=== PATIENT | male | born 1955 | race African-American/Black ===

== ENCOUNTER 2018-09-03 16:32 | Inpatient (IN) ==
[2018-09-03 17:17] LABS: Basophils % 0.3 % (0.0-0.8); Eosinophils # 0.1 10*3/uL (0.0-0.87); Hemoglobin 11.9 GM/DL (14.0-18.0); Immature Granulocytes % 0.4 %; Immature Granulocytes Absolute 0.03 #; Lymphocytes # 0.4 10*3/uL (1.4-4.0); Lymphocytes % 5.7 % (21.2-54.2); Mean Corpuscular HGB Conc 32.2 GM/DL (32-36); Mean Corpuscular Hemoglobin 28 PG (27-34); Mean Corpuscular Volume 86.7 FL (87-102); Monocytes # 0.5 10*3/uL (0.11-0.8); Monocytes % 6.2 % (1.7-12.7); Neutrophils # 6.3 10*3/uL (1.4-7.4); Neutrophils % 86.4 % (38.7-73.9); Platelet Count 498 T/CUMM (130-400); Red Blood Count 4.27 MC/CUMM (3.8-5.5); Red Cell Distribution Width 15.1 % (9.3-17.3); White Blood Count 7.2 T/CUMM (4-12)
[2018-09-03 17:27] LABS: INR 1.1; PT Patient Result 11.7 SECS; Partial Thromboplastin Time 29.1 SECS (0-40)
[2018-09-03 17:39] LABS: Albumin 3.6 G/DL (3.4-5.0); Bilirubin,Total 0.4 MG/DL (0.2-1.0); Osmolality,Calculated 266.4 MOS/KG (273-304); Potassium 4.5 MMOL/L (3.5-5.1); Total Protein 8.8 G/DL (6.4-8.3)
[2018-09-03 17:44] LABS: Calcium 14.7 MG/DL (8.5-10.1)
[2018-09-03] MEDS ORDERED: SODIUM CHLORIDE 0.9% 1,000 ML IV STA (17:47)
[2018-09-03] MEDS ORDERED: FUROSEMIDE 40 MG/4 ML VIAL IV STA (17:47)
[2018-09-03] MEDS ORDERED: FUROSEMIDE 40 MG/4 ML VIAL ONE (17:49)
[2018-09-03 18:15] LABS: Apearance,Urine Slightly Hazy (Clear); Bilirubin,Urine Negative (Negative); Blood, Urine Large mg/dL (Negative); Glucose,Urine (UA) Negative (Negative); Ketones,Urine Negative (Negative); Mucus,Urine Occasional /LPF (Occasional); Nitrite,Urine Negative (Negative); Protein,Urine Negative; RBC,Urine 81 /HPF (0-4); Squamous Epithelial Cell,Urine Occasional /HPF (0-10); Urine Color Yellow (Yellow); Urine Specific Gravity 1.018 (1.001-1.035); WBC,Urine 4 /HPF (0-6)
[2018-09-03] MEDS ORDERED: ONDANSETRON 4 MG/2 ML VIAL IV PRN (18:19)
[2018-09-03] MEDS ORDERED: BISACODYL 5 MG TABLET PO PRN (18:19)
[2018-09-03] MEDS: MORPHINE 4 MG/1 ML VIAL IV PRN (20:13)
[2018-09-03] MEDS: DOCUSATE SODIUM 100 MG CAPSULE PO SCH (21:40)
[2018-09-03] MEDS: ENOXAPARIN 40 MG/0.4 ML SYRINGE SUBCUT SCH (21:40)
[2018-09-03 21:54] LABS: Parathyroid Hormone Intact 5.3 PG/ML (18.4-80.1)
[2018-09-03] MEDS: SODIUM CHLORIDE 0.9% 1,000 ML IV SCH (22:00)
[2018-09-04 03:15] LABS: Basophils % 0.2 % (0.0-0.8); Eosinophils # 0.1 10*3/uL (0.0-0.87); Eosinophils % 1.4 % (0.00-10.9); Hemoglobin 11.8 GM/DL (14.0-18.0); Immature Granulocytes % 0.4 %; Immature Granulocytes Absolute 0.02 #; Lymphocytes # 0.4 10*3/uL (1.4-4.0); Lymphocytes % 7.4 % (21.2-54.2); Mean Corpuscular HGB Conc 31.9 GM/DL (32-36); Mean Corpuscular Hemoglobin 28 PG (27-34); Mean Corpuscular Volume 87.1 FL (87-102); Mean Platelet Volume 8.5 FL (9.6-12.0); Monocytes # 0.5 10*3/uL (0.11-0.8); Monocytes % 9.5 % (1.7-12.7); Neutrophils # 4.6 10*3/uL (1.4-7.4); Neutrophils % 81.1 % (38.7-73.9); Platelet Count 465 T/CUMM (130-400); Red Blood Count 4.25 MC/CUMM (3.8-5.5); White Blood Count 5.7 T/CUMM (4-12)
[2018-09-04] MEDS: MORPHINE 4 MG/1 ML VIAL IV PRN ×5 (03:48→21:17)
[2018-09-04 03:49] LABS: Calcium 13.5 MG/DL (8.5-10.1); Osmolality,Calculated 268.2 MOS/KG (273-304); Potassium 4.3 MMOL/L (3.5-5.1); Thyroid Stimulating Hormone 0.672 uIU/ml (0.358-3.74)
[2018-09-04] MEDS: SODIUM CHLORIDE 0.9% 1,000 ML IV SCH ×3 (04:34→15:52)
[2018-09-04] MEDS: POLYETHYLENE GLYCOL POWDER 17 GM PACK PO SCH (08:55)
[2018-09-04] MEDS: DOCUSATE SODIUM 100 MG CAPSULE PO SCH ×2 (08:55→21:18)
[2018-09-04] MEDS ORDERED: ZOLEDRONIC ACID 4 MG in PREMIX 1 EACH IV ONE (09:27)
[2018-09-04 11:21] LABS: Albumin (SPE) 4.7 G/DL (3.2-5.3); Albumin (SPE) Rel % 53.3 %; Alpha 1 (SPE) 0.4 G/DL (0.1-0.4); Alpha 2 (SPE) 1.3 G/DL (0.4-1.0); Alpha 2 (SPE) Rel % 14.7 %; Beta (SPE) Rel % 11.3 %; Gamma (SPE) 1.4 G/DL (0.7-1.7); Total Protein (Chem) 8.8 G/DL (6.4-8.3)
[2018-09-04 11:22] LABS: Gamma (SPE) Rel % 15.7 %
[2018-09-04] MEDS: ENOXAPARIN 40 MG/0.4 ML SYRINGE SUBCUT SCH (21:19)
[2018-09-05] MEDS: MORPHINE 4 MG/1 ML VIAL IV PRN ×3 (04:06→18:26)
[2018-09-05 04:43] LABS: Basophils % 0.2 % (0.0-0.8); Eosinophils # 0.1 10*3/uL (0.0-0.87); Eosinophils % 1.1 % (0.00-10.9); Hematocrit 31.5 VOL% (42.0-52.0); Immature Granulocytes % 0.5 %; Immature Granulocytes Absolute 0.03 #; Lymphocytes # 0.2 10*3/uL (1.4-4.0); Lymphocytes % 2.5 % (21.2-54.2); Mean Corpuscular HGB Conc 31.7 GM/DL (32-36); Mean Corpuscular Hemoglobin 28 PG (27-34); Mean Corpuscular Volume 87.5 FL (87-102); Mean Platelet Volume 9.1 FL (9.6-12.0); Monocytes # 0.3 10*3/uL (0.11-0.8); Neutrophils # 5.9 10*3/uL (1.4-7.4); Neutrophils % 91.7 % (38.7-73.9); Platelet Count 400 T/CUMM (130-400); White Blood Count 6.4 T/CUMM (4-12)
[2018-09-05 05:11] LABS: Calcium 11.8 MG/DL (8.5-10.1); Osmolality,Calculated 272.8 MOS/KG (273-304); Potassium 4.3 MMOL/L (3.5-5.1)
[2018-09-05 05:17] LABS: Alanine Aminotransferase < 9 U/L (16-61); Alkaline Phosphatase 154 U/L (45-117); Aspartate Amino Transferase 5 U/L (0-37); Blood Urea Nitrogen 13 MG/DL (7-18); Calcium 12.5 MG/DL (8.5-10.1); Glucose 91 MG/DL (74-106); Potassium 4.7 MMOL/L (3.5-5.1); Sodium 136 MMOL/L (136-145); Total Protein 6.6 G/DL (6.4-8.3)
[2018-09-05 06:01] LABS: Eosinophils 3 % (0-10); Lymphocytes 3 % (20-55); Segmented Neutrophils 90 % (50-85)
[2018-09-05 06:02] LABS: Hypochromasia 1+; Platelet Estimate Increased
[2018-09-05 06:03] LABS: Total Cells Counted 100
[2018-09-05] MEDS ORDERED: MAGNESIUM SULF RIDER 4 GM in PREMIX 1 EACH IV PRN (09:13)
[2018-09-05] MEDS ORDERED: MAGNESIUM SULF RIDER 2 GM in PREMIX 1 EACH IV PRN (09:13)
[2018-09-05] MEDS: POLYETHYLENE GLYCOL POWDER 17 GM PACK PO SCH (09:25)
[2018-09-05] MEDS: DOCUSATE SODIUM 100 MG CAPSULE PO SCH ×2 (09:25→20:45)
[2018-09-05] MEDS: SODIUM CHLORIDE 0.9% 1,000 ML IV SCH ×2 (13:16→13:17)
[2018-09-05] MEDS: LACTULOSE 20 GM/30 ML UDCUP PO PRN (13:18)
[2018-09-05] MEDS ORDERED: DEXAMETHASONE 10 MG/1 ML VIAL IV ONE (14:38)
[2018-09-05] MEDS: oxyCODONE/ACETAMINOPHEN 5-325 MG TABLET PO PRN (15:49)
[2018-09-05] MEDS: MORPHINE ER 15 MG TABLET PO SCH (20:45)
[2018-09-05] MEDS: ENOXAPARIN 40 MG/0.4 ML SYRINGE SUBCUT SCH (20:46)
[2018-09-06] MEDS: ENOXAPARIN 40 MG/0.4 ML SYRINGE SUBCUT SCH ×2 (02:12→20:08)
[2018-09-06] MEDS: MORPHINE 4 MG/1 ML VIAL IV PRN ×2 (03:18→10:52)
[2018-09-06] MEDS: SODIUM CHLORIDE 0.9% 1,000 ML IV SCH ×2 (03:19→05:25)
[2018-09-06] MEDS: oxyCODONE/ACETAMINOPHEN 5-325 MG TABLET PO PRN ×3 (05:22→21:38)
[2018-09-06] MEDS ORDERED: ACETAMINOPHEN 500 MG TABLET PO PRN (05:36)
[2018-09-06] MEDS ORDERED: LORazepam 2 MG/1 ML VIAL IV PRN (08:22)
[2018-09-06 09:04] LABS: Basophils % 0.2 % (0.0-0.8); Eosinophils % 0.2 % (0.00-10.9); Hematocrit 29.8 VOL% (42.0-52.0); Hemoglobin 9.5 GM/DL (14.0-18.0); Immature Granulocytes % 0.5 %; Immature Granulocytes Absolute 0.03 #; Lymphocytes # 0.1 10*3/uL (1.4-4.0); Lymphocytes % 2.5 % (21.2-54.2); Mean Corpuscular HGB Conc 31.9 GM/DL (32-36); Mean Corpuscular Hemoglobin 28 PG (27-34); Mean Corpuscular Volume 86.9 FL (87-102); Mean Platelet Volume 8.6 FL (9.6-12.0); Monocytes # 0.2 10*3/uL (0.11-0.8); Monocytes % 2.9 % (1.7-12.7); Neutrophils # 5.3 10*3/uL (1.4-7.4); Neutrophils % 93.7 % (38.7-73.9); Platelet Count 345 T/CUMM (130-400); Red Blood Count 3.43 MC/CUMM (3.8-5.5); Red Cell Distribution Width 15.1 % (9.3-17.3); White Blood Count 5.6 T/CUMM (4-12)
[2018-09-06 09:26] LABS: Band Neutrophils 2 % (0-10); Hypochromasia 1+; Lymphocytes 1 % (20-55); Platelet Estimate Adequate; Segmented Neutrophils 95 % (50-85); Total Cells Counted 100
[2018-09-06 09:31] LABS: Calcium 9.6 MG/DL (8.5-10.1); Osmolality,Calculated 275.8 MOS/KG (273-304); Potassium 3.5 MMOL/L (3.5-5.1)
[2018-09-06 09:33] LABS: Alanine Aminotransferase 10 U/L (16-61); Albumin 2.6 G/DL (3.4-5.0); Alkaline Phosphatase 137 U/L (45-117); Aspartate Amino Transferase 7 U/L (0-37); Bilirubin,Total < 0.39 MG/DL (0.2-1.0); Blood Urea Nitrogen 15 MG/DL (7-18); Calcium 9.4 MG/DL (8.5-10.1); Glucose 144 MG/DL (74-106); Osmolality,Calculated 276.8 MOS/KG (273-304); Potassium 3.6 MMOL/L (3.5-5.1); Sodium 137 MMOL/L (136-145); Total Protein 6.7 G/DL (6.4-8.3)
[2018-09-06] MEDS: POLYETHYLENE GLYCOL POWDER 17 GM PACK PO SCH (10:49)
[2018-09-06] MEDS: MORPHINE ER 15 MG TABLET PO SCH ×2 (10:50→20:31)
[2018-09-06] MEDS: DOCUSATE SODIUM 100 MG CAPSULE PO SCH ×2 (10:50→20:33)
[2018-09-06] MEDS: LACTULOSE 20 GM/30 ML UDCUP PO PRN (10:52)
[2018-09-06 11:10] LABS: Apearance,Urine CLEAR (Clear); Bilirubin,Urine Negative (Negative); Blood, Urine Negative (Negative); Glucose,Urine (UA) Negative (Negative); Hyaline Casts,Urine 1 /LPF (0-3); Ketones,Urine Negative (Negative); Mucus,Urine Occasional /LPF (Occasional); Nitrite,Urine Negative (Negative); Protein,Urine Negative; RBC,Urine 1 /HPF (0-4); Urine Color Yellow (Yellow); Urine Specific Gravity 1.018 (1.001-1.035); WBC,Urine <1 /HPF (0-6)
[2018-09-07] MEDS: oxyCODONE/ACETAMINOPHEN 5-325 MG TABLET PO PRN ×2 (02:50→22:46)
[2018-09-07 05:05] LABS: Basophils % 0.2 % (0.0-0.8); Eosinophils # 0.1 10*3/uL (0.0-0.87); Hematocrit 29.3 VOL% (42.0-52.0); Hemoglobin 9.3 GM/DL (14.0-18.0); Immature Granulocytes % 0.5 %; Immature Granulocytes Absolute 0.03 #; Lymphocytes # 0.3 10*3/uL (1.4-4.0); Lymphocytes % 5.2 % (21.2-54.2); Mean Corpuscular HGB Conc 31.7 GM/DL (32-36); Mean Corpuscular Hemoglobin 28 PG (27-34); Mean Corpuscular Volume 86.9 FL (87-102); Mean Platelet Volume 8.9 FL (9.6-12.0); Monocytes # 0.3 10*3/uL (0.11-0.8); Monocytes % 4.9 % (1.7-12.7); Neutrophils # 5.3 10*3/uL (1.4-7.4); Neutrophils % 88.2 % (38.7-73.9); Platelet Count 391 T/CUMM (130-400); Red Blood Count 3.37 MC/CUMM (3.8-5.5); Red Cell Distribution Width 15.2 % (9.3-17.3)
[2018-09-07 05:27] LABS: Albumin 2.8 G/DL (3.4-5.0); Bilirubin,Total 0.4 MG/DL (0.2-1.0); Calcium 9.2 MG/DL (8.5-10.1); Osmolality,Calculated 274.5 MOS/KG (273-304); Potassium 3.5 MMOL/L (3.5-5.1); Total Protein 7.1 G/DL (6.4-8.3)
[2018-09-07] MEDS: MORPHINE 4 MG/1 ML VIAL IV PRN ×3 (07:08→16:07)
[2018-09-07] MEDS ORDERED: diphenhydrAMINE 50 MG/1 ML VIAL IV ONE ×2 (07:59→14:30)
[2018-09-07] MEDS ORDERED: FAMOTIDINE 20 MG/2 ML VIAL IV ONE ×2 (07:59→14:30)
[2018-09-07] MEDS ORDERED: GRANISETRON 1 MG/1 ML VIAL IV SCH (08:00)
[2018-09-07] MEDS: MORPHINE ER 15 MG TABLET PO SCH (08:16)
[2018-09-07] MEDS: POLYETHYLENE GLYCOL POWDER 17 GM PACK PO SCH (08:16)
[2018-09-07] MEDS: DOCUSATE SODIUM 100 MG CAPSULE PO SCH ×2 (08:16→20:59)
[2018-09-07] MEDS ORDERED: DEXAMETHASONE INJ 20 MG in SODIUM CHLORIDE 0.9% 50 ML IV ONE ×2 (09:00→15:00)
[2018-09-07] MEDS ORDERED: CARBOplatin 400 MG in SODIUM CHLORIDE 0.9% 250 ML IV ONE ×2 (09:00→15:00)
[2018-09-07] MEDS ORDERED: HYDROcod/ACETAMIN 7.5-325 MG/15 ML UDCUP PO PRN (13:29)
[2018-09-07] MEDS ORDERED: MORPHINE ER 15 MG TABLET PO ONE (13:35)
[2018-09-07] MEDS: MORPHINE ER 30 MG TABLET PO SCH (20:58)
[2018-09-07] MEDS: ENOXAPARIN 40 MG/0.4 ML SYRINGE SUBCUT SCH ×2 (21:00→21:02)
[2018-09-08 04:21] LABS: Basophils % 0.2 % (0.0-0.8); Hemoglobin 9.5 GM/DL (14.0-18.0); Immature Granulocytes % 0.4 %; Immature Granulocytes Absolute 0.02 #; Lymphocytes # 0.1 10*3/uL (1.4-4.0); Mean Corpuscular HGB Conc 31.7 GM/DL (32-36); Mean Corpuscular Hemoglobin 27 PG (27-34); Mean Corpuscular Volume 86.2 FL (87-102); Mean Platelet Volume 8.7 FL (9.6-12.0); Monocytes % 0.7 % (1.7-12.7); Neutrophils # 5.3 10*3/uL (1.4-7.4); Neutrophils % 96.7 % (38.7-73.9); Platelet Count 346 T/CUMM (130-400); Red Blood Count 3.48 MC/CUMM (3.8-5.5); White Blood Count 5.5 T/CUMM (4-12)
[2018-09-08] MEDS: oxyCODONE/ACETAMINOPHEN 5-325 MG TABLET PO PRN (04:25)
[2018-09-08 04:49] LABS: Calcium 8.7 MG/DL (8.5-10.1); Osmolality,Calculated 273.8 MOS/KG (273-304); Potassium 3.8 MMOL/L (3.5-5.1)
[2018-09-08 05:04] LABS: Hypochromasia Slight; Platelet Estimate Normal; Segmented Neutrophils 100 % (50-85); Total Cells Counted 100
[2018-09-08] MEDS: MORPHINE ER 30 MG TABLET PO SCH (08:39)
[2018-09-08] MEDS: POLYETHYLENE GLYCOL POWDER 17 GM PACK PO SCH (08:39)
[2018-09-08] MEDS: DOCUSATE SODIUM 100 MG CAPSULE PO SCH (08:39)
[2018-09-08 11:02] VITALS: BP 127/67
[2018-09-09 07:32] LABS: Immuno Free Light Chain Kappa 1.83 MG/DL (0.33-1.94); Immuno Free Light Chain Lambda 0.9 MG/DL (0.57-2.63); Immuno Free Light Chain Ratio 2.03 MG/DL (0.26-1.65)
== END 2018-09-08 12:35 | disposition home or self-care (01) | DRG 641 ==
LOC: EDBD → EDUNIT# → N.ED 16:32 → SUATTDRO 18:19 → N.EDINP 18:19 → N.4E 20:39
PROVIDERS: ADMIT Internal Medicine; ATTEND Internal Medicine Nephrology

== ENCOUNTER 2018-10-29 11:36 | Inpatient (IN) ==
[2018-10-29] MEDS ORDERED: SODIUM CHLORIDE 0.9% 1,000 ML IV STA (12:00)
[2018-10-29] MEDS ORDERED: ONDANSETRON 4 MG/2 ML VIAL IV STA ×2 (12:00→13:44)
[2018-10-29 12:39] LABS: Basophils % 0.1 % (0.0-0.8); Eosinophils % 0.3 % (0.00-10.9); Hematocrit 32.2 VOL% (42.0-52.0); Hemoglobin 9.6 GM/DL (14.0-18.0); Immature Granulocytes Absolute 0.07 #; Lymphocytes # 0.2 10*3/uL (1.4-4.0); Lymphocytes % 2.5 % (21.2-54.2); Mean Corpuscular HGB Conc 29.8 GM/DL (32-36); Mean Corpuscular Hemoglobin 26 PG (27-34); Mean Platelet Volume 9.7 FL (9.6-12.0); Monocytes # 0.4 10*3/uL (0.11-0.8); Monocytes % 4.9 % (1.7-12.7); Neutrophils # 6.5 10*3/uL (1.4-7.4); Neutrophils % 91.2 % (38.7-73.9); Platelet Count 142 T/CUMM (130-400); Red Blood Count 3.66 MC/CUMM (3.8-5.5); Red Cell Distribution Width 18.7 % (9.3-17.3); White Blood Count 7.1 T/CUMM (4-12)
[2018-10-29 12:56] LABS: Albumin 2.8 G/DL (3.4-5.0); Bilirubin,Total 0.7 MG/DL (0.2-1.0); Osmolality,Calculated 272.2 MOS/KG (273-304); Potassium 4.1 MMOL/L (3.5-5.1)
[2018-10-29 13:00] LABS: Calcium 15.2 MG/DL (8.5-10.1)
[2018-10-29 13:03] LABS: Anisocytosis Slight; Hypochromasia 2+; Lymphocytes 3 % (20-55); Microcytosis Slight; Platelet Estimate Adequate; Polychromasia Slight; Segmented Neutrophils 94 % (50-85); Total Cells Counted 100
[2018-10-29] MEDS ORDERED: HYDROmorphone 2 MG/1 ML VIAL IV STA (13:44)
[2018-10-29] MEDS ORDERED: ONDANSETRON 4 MG/2 ML VIAL IV PRN (14:02)
[2018-10-29] MEDS ORDERED: BISACODYL 5 MG TABLET PO PRN (14:04)
[2018-10-29] MEDS ORDERED: ZOLEDRONIC ACID 4 MG in PREMIX 1 EACH IV ONE (14:05)
[2018-10-29 15:11] LABS: Apearance,Urine CLEAR (Clear); Bilirubin,Urine Negative (Negative); Blood, Urine Negative (Negative); Glucose,Urine (UA) Negative (Negative); Hyaline Casts,Urine 1 /LPF (0-3); Ketones,Urine Negative (Negative); Mucus,Urine Occasional /LPF (Occasional); Nitrite,Urine Negative (Negative); Protein,Urine Negative; RBC,Urine <1 /HPF (0-4); Urine Color Yellow (Yellow); Urine Specific Gravity 1.015 (1.001-1.035); WBC,Urine 3 /HPF (0-6)
[2018-10-29] MEDS: GABAPENTIN 100 MG CAPSULE PO SCH ×2 (16:58→21:10)
[2018-10-29] MEDS: ENOXAPARIN 40 MG/0.4 ML SYRINGE SUBCUT SCH (16:59)
[2018-10-29] MEDS: SODIUM CHLORIDE 0.9% 1,000 ML IV SCH (17:00)
[2018-10-29] MEDS: MORPHINE 4 MG/1 ML VIAL IV PRN (19:48)
[2018-10-29] MEDS: MORPHINE ER 30 MG TABLET PO SCH (21:12)
[2018-10-29] MEDS: DOCUSATE SODIUM 100 MG CAPSULE PO SCH (21:13)
[2018-10-30] MEDS: SODIUM CHLORIDE 0.9% 1,000 ML IV SCH ×3 (00:38→16:34)
[2018-10-30 05:06] LABS: Calcium 13.7 MG/DL (8.5-10.1); Osmolality,Calculated 279.5 MOS/KG (273-304); Potassium 3.7 MMOL/L (3.5-5.1)
[2018-10-30 06:28] LABS: Basophils % 0.2 % (0.0-0.8); Eosinophils % 0.5 % (0.00-10.9); Hematocrit 25.4 VOL% (42.0-52.0); Immature Granulocytes % 1.2 %; Immature Granulocytes Absolute 0.07 #; Lymphocytes # 0.1 10*3/uL (1.4-4.0); Lymphocytes % 2.2 % (21.2-54.2); Mean Corpuscular HGB Conc 29.9 GM/DL (32-36); Mean Corpuscular Hemoglobin 26 PG (27-34); Mean Corpuscular Volume 87.6 FL (87-102); Mean Platelet Volume 9.9 FL (9.6-12.0); Monocytes # 0.4 10*3/uL (0.11-0.8); Monocytes % 7.1 % (1.7-12.7); Neutrophils # 5.2 10*3/uL (1.4-7.4); Neutrophils % 88.8 % (38.7-73.9); Platelet Count 123 T/CUMM (130-400); Red Cell Distribution Width 18.6 % (9.3-17.3); White Blood Count 5.8 T/CUMM (4-12)
[2018-10-30 06:30] LABS: Hemoglobin 7.6 GM/DL (14.0-18.0)
[2018-10-30 06:41] LABS: Hypochromasia Slight; Lymphocytes 6 % (20-55); Platelet Estimate Decreased; Segmented Neutrophils 92 % (50-85); Total Cells Counted 100
[2018-10-30] MEDS: MORPHINE 4 MG/1 ML VIAL IV PRN (07:36)
[2018-10-30] MEDS ORDERED: SODIUM CHLORIDE 0.9% 1,000 ML IV PRN (08:42)
[2018-10-30] MEDS: POLYETHYLENE GLYCOL POWDER 17 GM PACK PO SCH (11:52)
[2018-10-30] MEDS: MORPHINE ER 30 MG TABLET PO SCH ×2 (11:53→20:19)
[2018-10-30] MEDS: DOCUSATE SODIUM 100 MG CAPSULE PO SCH ×2 (11:54→20:19)
[2018-10-30] MEDS: GABAPENTIN 100 MG CAPSULE PO SCH ×3 (11:54→20:19)
[2018-10-30] MEDS: ENOXAPARIN 40 MG/0.4 ML SYRINGE SUBCUT SCH (14:33)
[2018-10-31 04:26] LABS: Basophils % 0.2 % (0.0-0.8); Eosinophils % 0.2 % (0.00-10.9); Hematocrit 28.5 VOL% (42.0-52.0); Hemoglobin 8.8 GM/DL (14.0-18.0); Immature Granulocytes % 1.3 %; Immature Granulocytes Absolute 0.08 #; Lymphocytes # 0.1 10*3/uL (1.4-4.0); Lymphocytes % 1.7 % (21.2-54.2); Mean Corpuscular HGB Conc 30.9 GM/DL (32-36); Mean Corpuscular Hemoglobin 27 PG (27-34); Mean Corpuscular Volume 88.2 FL (87-102); Mean Platelet Volume 9.6 FL (9.6-12.0); Monocytes # 0.4 10*3/uL (0.11-0.8); Monocytes % 7.3 % (1.7-12.7); Neutrophils # 5.4 10*3/uL (1.4-7.4); Neutrophils % 89.3 % (38.7-73.9); Platelet Count 119 T/CUMM (130-400); Red Blood Count 3.23 MC/CUMM (3.8-5.5); Red Cell Distribution Width 17.6 % (9.3-17.3)
[2018-10-31 04:37] LABS: Albumin 2.2 G/DL (3.4-5.0); Bilirubin,Total 0.9 MG/DL (0.2-1.0); Calcium 11.8 MG/DL (8.5-10.1); Osmolality,Calculated 273.8 MOS/KG (273-304); Potassium 3.4 MMOL/L (3.5-5.1); Total Protein 6.1 G/DL (6.4-8.3)
[2018-10-31 05:38] LABS: Lymphocytes 1 % (20-55); Segmented Neutrophils 93 % (50-85); Total Cells Counted 100
[2018-10-31 05:39] LABS: Hypochromasia 1+; Platelet Estimate Decreased
[2018-10-31 05:40] LABS: Target Cells Few
[2018-10-31] MEDS: SODIUM CHLORIDE 0.9% 1,000 ML IV SCH ×4 (06:00→17:44)
[2018-10-31] MEDS: MORPHINE ER 30 MG TABLET PO SCH ×2 (09:06→20:31)
[2018-10-31] MEDS: GABAPENTIN 100 MG CAPSULE PO SCH ×3 (09:07→20:30)
[2018-10-31] MEDS: POLYETHYLENE GLYCOL POWDER 17 GM PACK PO SCH (09:07)
[2018-10-31] MEDS: DOCUSATE SODIUM 100 MG CAPSULE PO SCH ×2 (09:07→20:31)
[2018-10-31] MEDS: ENOXAPARIN 40 MG/0.4 ML SYRINGE SUBCUT SCH (16:16)
[2018-10-31] MEDS: MORPHINE 4 MG/1 ML VIAL IV PRN (19:25)
[2018-11-01] MEDS: SODIUM CHLORIDE 0.9% 1,000 ML IV SCH ×2 (00:38→09:08)
[2018-11-01 04:45] LABS: Basophils % 0.2 % (0.0-0.8); Eosinophils % 0.4 % (0.00-10.9); Hematocrit 30.6 VOL% (42.0-52.0); Hemoglobin 9.3 GM/DL (14.0-18.0); Immature Granulocytes % 1.2 %; Immature Granulocytes Absolute 0.06 #; Lymphocytes # 0.2 10*3/uL (1.4-4.0); Mean Corpuscular HGB Conc 30.4 GM/DL (32-36); Mean Corpuscular Hemoglobin 27 PG (27-34); Mean Corpuscular Volume 88.2 FL (87-102); Mean Platelet Volume 9.6 FL (9.6-12.0); Monocytes # 0.4 10*3/uL (0.11-0.8); Monocytes % 7.1 % (1.7-12.7); Neutrophils # 4.3 10*3/uL (1.4-7.4); Neutrophils % 88.1 % (38.7-73.9); Platelet Count 137 T/CUMM (130-400); Red Blood Count 3.47 MC/CUMM (3.8-5.5); Red Cell Distribution Width 18.1 % (9.3-17.3); White Blood Count 4.9 T/CUMM (4-12)
[2018-11-01 05:01] LABS: Calcium 10.8 MG/DL (8.5-10.1); Osmolality,Calculated 270.8 MOS/KG (273-304); Potassium 3.2 MMOL/L (3.5-5.1)
[2018-11-01 05:12] LABS: Band Neutrophils 1 % (0-10); Hypochromasia Slight; Lymphocytes 2 % (20-55); Platelet Estimate Decreased; Segmented Neutrophils 94 % (50-85); Total Cells Counted 100
[2018-11-01] MEDS: DOCUSATE SODIUM 100 MG CAPSULE PO SCH (09:08)
[2018-11-01] MEDS: MORPHINE ER 30 MG TABLET PO SCH (09:08)
[2018-11-01] MEDS: POLYETHYLENE GLYCOL POWDER 17 GM PACK PO SCH (09:08)
[2018-11-01] MEDS: GABAPENTIN 100 MG CAPSULE PO SCH (09:08)
[2018-11-01 11:23] VITALS: BP 119/66
== END 2018-11-01 12:53 | disposition home or self-care (01) | DRG 147 ==
LOC: N.ED 11:36 → N.EDINP 13:48 → N.4E 15:38
PROVIDERS: ADMIT Hospitalist; ATTEND Hospitalist